=== PATIENT | female | born 1990 | race Caucasian/White ===

== ENCOUNTER 2022-07-07 17:10 | Inpatient (IN) | payer BC, OTHER ==
[2022-07-07 17:45] VITALS: BMI 31.8
[2022-07-07 18:39] LABS: BASO % 0.3 % (0-2.0); EOS % 0.3 % (0-4.5); HEMATOCRIT 36.6 % (32.4-45.2); HEMOGLOBIN 12.4 GM/dL (10.7-15.3); LYMPH % 15.6 % (8-40); MEAN CELL VOLUME 91.3 fl (80-96); MEAN PLT VOLUME 9.9 fl (7.5-11.1); MONO % 5.9 % (3.8-10.2); NEUT % 77.9 % (42.8-82.8); PLATELET COUNT 188 10^3/uL (134-434); RBC 4.01 M/mm3 (3.60-5.2); RDW 14.2 % (11.6-15.6); WHITE BLOOD COUNT 7.8 K/mm3 (4.0-10.0)
[2022-07-07 18:46] LABS: INR 0.96 (0.83-1.09)
[2022-07-07 18:48] LABS: ACTIVATED PTT 26.2 SECONDS (25.2-36.5)
[2022-07-07] MEDS ORDERED: DINOPROSTONE 10 MG VAGINAL SUPPOSITORY VG ONE (18:55)
[2022-07-07 19:01] LABS: BLOOD UREA NITROGEN 8.4 mg/dL (7-18); CALCIUM 9.1 mg/dL (8.5-10.1)
[2022-07-07 19:05] LABS: CREATININE 0.5 mg/dL (0.55-1.3)
[2022-07-07] MEDS: ELECTROLYTE-148 SOLN 1,000 ML IV SCH (20:00)
[2022-07-08] MEDS ORDERED: BUTORPHANOL TARTRATE 2 MG/ML VIAL ONE (00:58)
[2022-07-08] MEDS ORDERED: PROMETHAZINE HCL 25 MG/1 ML VIAL ONE (00:58)
[2022-07-08] MEDS ORDERED: PROMETHAZINE HCL 25 MG/1 ML VIAL IVPB ONE (01:10)
[2022-07-08] MEDS ORDERED: BUTORPHANOL TARTRATE 2 MG/ML VIAL IVPB ONE (01:10)
[2022-07-08] MEDS: ELECTROLYTE-148 SOLN 1,000 ML IV SCH ×3 (06:15→19:39)
[2022-07-08] MEDS ORDERED: OXYTOCIN 20 UNITS in 0.9% NS 40 UNIT/2,000 ML INFUS.BAG IV ONE (11:06)
[2022-07-08] MEDS ORDERED: PHENYLEPHRINE HCL 10 MG/1 ML SINGLE DOSE VIAL ONE (11:07)
[2022-07-08] MEDS ORDERED: ONDANSETRON 4 MG/2 ML VIAL ONE (11:07)
[2022-07-08] MEDS ORDERED: ceFAZolin SODIUM 1 GM VIAL ONE (11:07)
[2022-07-08] MEDS ORDERED: morphine SULFATE/PF 1 MG/2 ML (2cc Syringe - QUVA) ONE (11:07)
[2022-07-08] MEDS ORDERED: DEXAMETHASONE SOD PHOSPHATE 4 MG/1 ML VIAL ONE (11:07)
[2022-07-08] MEDS ORDERED: KETOROLAC TROMETHAMINE 30 MG/1 ML VIAL ONE (11:49)
[2022-07-08] MEDS ORDERED: ONDANSETRON 4 MG/2 ML VIAL IVPB PRN (12:14)
[2022-07-08] MEDS ORDERED: IBUPROFEN 800 MG/8 ML IJ IVPB PRN (12:14)
[2022-07-08] MEDS ORDERED: SENNOSIDES/DOCUSATE COMBO (SENNA PLUS) TABLET (UD) PO PRN (12:14)
[2022-07-08] MEDS: OXYTOCIN 20 UNITS in 0.9% NS 20 UNIT/1,000 ML INFUS.BAG IV SCH ×2 (12:30→21:28)
[2022-07-08] MEDS ORDERED: IBUPROFEN 800 MG/8 ML IJ IVPB ONE (12:31)
[2022-07-08] MEDS: ACETAMINOPHEN 1000 MG/100 ML BAG IVPB PRN ×2 (14:01→20:29)
[2022-07-08] MEDS ORDERED: CEFAZOLIN 2 GM in DEXTROSE 5%-WATER - 100 ML IVPB SCH (18:00)
[2022-07-08] MEDS: CEFAZOLIN 2 GM in DEXTROSE 5%-WATER 100 ML IVPB SCH (18:07)
[2022-07-09] MEDS: CEFAZOLIN 2 GM in DEXTROSE 5%-WATER 100 ML IVPB SCH (01:47)
[2022-07-09] MEDS: IBUPROFEN 600 MG TABLET (FP) PO PRN ×2 (01:47→19:49)
[2022-07-09] MEDS: SIMETHICONE 80 MG TAB.CHEW (FP) PO PRN ×4 (01:48→19:49)
[2022-07-09 03:34] VITALS: RESP 18
[2022-07-09] MEDS: ACETAMINOPHEN 1000 MG/100 ML BAG IVPB PRN (04:55)
[2022-07-09 09:13] LABS: BASO % 0.2 % (0-2.0); EOS % 0.5 % (0-4.5); HEMATOCRIT 31.4 % (32.4-45.2); HEMOGLOBIN 10.7 GM/dL (10.7-15.3); LYMPH % 18.3 % (8-40); MCH 31.6 pg (25.7-33.7); MCHC 34.2 g/dl (32.0-36.0); MEAN CELL VOLUME 92.3 fl (80-96); MEAN PLT VOLUME 9.7 fl (7.5-11.1); MONO % 6.4 % (3.8-10.2); NEUT % 74.6 % (42.8-82.8); PLATELET COUNT 148 10^3/uL (134-434); RDW 14.4 % (11.6-15.6); WHITE BLOOD COUNT 8.3 K/mm3 (4.0-10.0)
[2022-07-09] MEDS: oxyCODONE HCL 5 MG TABLET PO PRN (10:06)
[2022-07-09] MEDS ORDERED: BISACODYL 10 MG SUPP.RECT RC PRN (12:14)
[2022-07-09] MEDS: ACETAMINOPHEN 325 MG TABLET (FP) PO PRN (15:07)
[2022-07-09] MEDS: OXYTOCIN 20 UNITS in 0.9% NS 20 UNIT/1,000 ML INFUS.BAG IV SCH (19:44)
[2022-07-09] MEDS ORDERED: PHENAZOPYRIDINE HCL 100 MG TABLET (FP) PO ONE (22:45)
[2022-07-09] MEDS: NITROFURANTOIN MACROCRYSTAL 50 MG CAPSULE (FP) PO SCH (23:00)
[2022-07-10] MEDS: SIMETHICONE 80 MG TAB.CHEW (FP) PO PRN ×4 (03:42→19:18)
[2022-07-10] MEDS: ACETAMINOPHEN 325 MG TABLET (FP) PO PRN ×2 (03:42→15:22)
[2022-07-10] MEDS ORDERED: PHENAZOPYRIDINE HCL 100 MG TABLET (FP) PO ONE (06:00)
[2022-07-10] MEDS: NITROFURANTOIN MACROCRYSTAL 50 MG CAPSULE (FP) PO SCH ×3 (06:13→18:48)
[2022-07-10] MEDS: IBUPROFEN 600 MG TABLET (FP) PO PRN ×2 (08:58→19:18)
[2022-07-11] MEDS: NITROFURANTOIN MACROCRYSTAL 50 MG CAPSULE (FP) PO SCH ×3 (00:30→13:09)
[2022-07-11] MEDS: ACETAMINOPHEN 325 MG TABLET (FP) PO PRN ×2 (00:35→10:26)
[2022-07-11] MEDS: SIMETHICONE 80 MG TAB.CHEW (FP) PO PRN ×3 (00:35→10:27)
[2022-07-11] MEDS: oxyCODONE HCL 5 MG TABLET PO PRN (06:11)
[2022-07-11 09:38] VITALS: BP 129/74; PULSE 79; TEMP 98.8
== END 2022-07-11 14:00 | disposition home or self-care (01) | DRG 787 ==
LOC: JLDR 17:10 → J3W 07-08 13:35
PROVIDERS: ADMIT Specialist; ATTEND Specialist
PROC: 3E0P7VZ Introduction of Hormone into Female Reproductive, Via Natural or Artificial Opening (ICD-10-PCS; 2022-07-07)
PROC: 10D00Z1 Extraction of Products of Conception, Low, Open Approach (ICD-10-PCS; principal; 2022-07-08)
DX: O62.1 Secondary uterine inertia (principal); O41.03X0 Oligohydramnios, third trimester, not applicable or unspecified; O61.0 Failed medical induction of labor; Z3A.38 38 weeks gestation of pregnancy; Z37.0 Single live birth
CPT/HCPCS: 36415; 80048; 85025; 85610; 85730; 86780; 86850; 86900; 86901; 87086; 88307-TC; C9803-CS; U0003; U0005

== ENCOUNTER 2024-08-23 11:15 | Inpatient (IN) | payer BC, OTHER ==
[2024-08-23 12:39] LABS: BASO % 0.5 % (0-2.0); EOS % 0.5 % (0-4.5); HEMOGLOBIN 10.9 GM/dL (10.7-15.3); LYMPH % 20.7 % (8-40); MCHC 32.8 g/dl (32.0-36.0); MEAN CELL VOLUME 85.3 fl (80-96); MONO % 7.4 % (3.8-10.2); NEUT % 70.9 % (42.8-82.8); PLATELET COUNT 202 10^3/uL (134-434); RBC 3.87 M/mm3 (3.60-5.2); RDW 14.7 % (11.6-15.6); WHITE BLOOD COUNT 5.4 K/mm3 (4.0-10.0)
[2024-08-23 12:46] LABS: INR 0.92 (0.83-1.09); PROTHROMBIN TIME (PATIENT) 10.4 SEC (9.7-13.0)
[2024-08-23 12:48] LABS: ACTIVATED PTT 26.2 SECONDS (25.2-36.5)
[2024-08-23 13:11] LABS: CHLORIDE 108 mmol/L (98-107); POTASSIUM 4.1 mmol/L (3.5-5.1); SODIUM 141 mmol/L (136-145)
[2024-08-23 13:23] LABS: ANION GAP 12 mmol/L (4-13); BLOOD UREA NITROGEN 6.2 mg/dL (7-18); CALCIUM 8.4 mg/dL (8.5-10.1); CO2 21 mmol/L (21-32); GLUCOSE,RANDOM 78 mg/dL (74-106)
[2024-08-23 13:30] LABS: CREATININE 0.5 mg/dL (0.55-1.3)
[2024-08-23] MEDS: ELECTROLYTE-148 SOLN 1,000 ML IV SCH (14:00)
[2024-08-23 14:08] LABS: HIV INTERPRETATION NEGATIVE (NEGATIVE)
[2024-08-23 14:10] VITALS: BMI 30.1
[2024-08-23] MEDS ORDERED: SODIUM CHLORIDE 0.9% P/F 10 ML VIAL IJ ONE (15:57)
[2024-08-23] MEDS ORDERED: DEXAMETHASONE SOD PHOSPHATE 4 MG/1 ML VIAL ONE (15:57)
[2024-08-23] MEDS ORDERED: ONDANSETRON 4 MG/2 ML VIAL ONE (15:57)
[2024-08-23] MEDS ORDERED: ceFAZolin SODIUM 1 GM VIAL ONE ×2 (15:57)
[2024-08-23] MEDS ORDERED: KETOROLAC TROMETHAMINE 30 MG/1 ML VIAL ONE (16:05)
[2024-08-23] MEDS ORDERED: FENTANYL CITRATE/PF 50 MCG/ML VIAL ONE (17:33)
[2024-08-23] MEDS ORDERED: morphine SULFATE/PF 1 MG/2 ML (2cc Syringe - QUVA) ONE (17:33)
[2024-08-23] MEDS ORDERED: AZITHROMYCIN IVPB 500 MG/250 ML BAG IVPB ONE (17:38)
[2024-08-23] MEDS: CITRIC ACID/SODIUM CITRATE 30 ML UNIT-DOSE CUP PO ONE (18:00)
[2024-08-23] MEDS ORDERED: OXYTOCIN 10 UNITS/ML VIAL ONE (18:36)
[2024-08-23] MEDS ORDERED: MIDAZOLAM HCL 2 MG/2 ML SINGLE DOSE VIAL ONE (18:39)
[2024-08-23 19:13] LABS: CORD BASE EXCESS -4.9 mmol/L (0-2); CORD HCO3 19.9 mmHg (20-29); CORD PCO2 36.5 mmHg (30-78); CORD pH 7.354 (7.14-7.44)
[2024-08-23] MEDS ORDERED: METHYLERGONOVINE MALEATE 0.2 MG/1 ML AMP IM PRN (19:19)
[2024-08-23] MEDS ORDERED: OXYTOCIN 20 UNITS in 0.9% NS 20 UNIT/1,000 ML INFUS.BAG IV ONE (19:39)
[2024-08-23] MEDS: OXYTOCIN 20 UNITS in 0.9% NS 20 UNIT/1,000 ML INFUS.BAG IV SCH (19:40)
[2024-08-23] MEDS ORDERED: IBUPROFEN 800 MG/8 ML IJ IVPB ONE (20:49)
[2024-08-23] MEDS: IBUPROFEN 800 MG/8 ML IJ IVPB PRN (21:04)
[2024-08-23] MEDS: FERROUS SO4 325 MG TABLET (FP) PO SCH (23:26)
[2024-08-24] MEDS: ACETAMINOPHEN 1000 MG/100 ML BAG IVPB PRN (01:48)
[2024-08-24] MEDS: OXYTOCIN 20 UNITS in 0.9% NS 20 UNIT/1,000 ML INFUS.BAG IV SCH (06:05)
[2024-08-24] MEDS ORDERED: oxyCODONE HCL 5 MG TABLET PO PRN ×2 (07:19)
[2024-08-24 07:52] LABS: BASO % 0.1 % (0-2.0); HEMATOCRIT 28.2 % (32.4-45.2); HEMOGLOBIN 9.3 GM/dL (10.7-15.3); LYMPH % 10.5 % (8-40); MCH 28.2 pg (25.7-33.7); MCHC 32.9 g/dl (32.0-36.0); MEAN CELL VOLUME 85.8 fl (80-96); MEAN PLT VOLUME 9.8 fl (7.5-11.1); MONO % 5.4 % (3.8-10.2); PLATELET COUNT 187 10^3/uL (134-434); RBC 3.29 M/mm3 (3.60-5.2); RDW 14.7 % (11.6-15.6); WHITE BLOOD COUNT 10.7 K/mm3 (4.0-10.0)
[2024-08-24] MEDS: PRENATAL VITAMINS W/ FOLIC ACID TABLET (FP) PO SCH (10:00)
[2024-08-24] MEDS: SIMETHICONE 80 MG TAB.CHEW (FP) PO PRN (10:22)
[2024-08-24] MEDS: ENOXAPARIN NA (PORCINE) 40 MG/0.4 ML DISP.SYRIN SQ SCH (10:23)
[2024-08-24] MEDS: IBUPROFEN 600 MG TABLET (FP) PO PRN (14:10)
[2024-08-24] MEDS: ACETAMINOPHEN 325 MG TABLET (FP) PO PRN (15:25)
[2024-08-24] MEDS ORDERED: BISACODYL 10 MG SUPP.RECT RC PRN (19:19)
[2024-08-25 00:08] VITALS: RESP 18
[2024-08-25] MEDS: SENNOSIDES/DOCUSATE COMBO (SENNA PLUS) TABLET (UD) PO PRN (05:28)
[2024-08-26 08:00] LABS: BASO % 0.4 % (0-2.0); EOS % 1.4 % (0-4.5); HEMATOCRIT 28.5 % (32.4-45.2); HEMOGLOBIN 9.3 GM/dL (10.7-15.3); LYMPH % 22.5 % (8-40); MCH 28.1 pg (25.7-33.7); MCHC 32.8 g/dl (32.0-36.0); MEAN CELL VOLUME 85.7 fl (80-96); MEAN PLT VOLUME 9.3 fl (7.5-11.1); MONO % 5.6 % (3.8-10.2); NEUT % 70.1 % (42.8-82.8); PLATELET COUNT 220 10^3/uL (134-434); RBC 3.32 M/mm3 (3.60-5.2); RDW 15.2 % (11.6-15.6); WHITE BLOOD COUNT 6.9 K/mm3 (4.0-10.0)
[2024-08-26 10:45] VITALS: BP 113/71; PULSE 99; TEMP 97.9
== END 2024-08-26 13:20 | disposition home or self-care (01) | DRG 788 ==
LOC: JLDR 11:15 → J3W 22:00
PROVIDERS: ADMIT Specialist; ATTEND Specialist
PROC: 10D00Z1 Extraction of Products of Conception, Low, Open Approach (ICD-10-PCS; principal; 2024-08-23)
DX: O41.03X0 Oligohydramnios, third trimester, not applicable or unspecified (principal); Z3A.38 38 weeks gestation of pregnancy; Z37.0 Single live birth
CPT/HCPCS: 36415; 36600; 59409; 80048; 82803; 85025; 85610; 85730; 86780; 86850; 86900; 86901; 87389; 88307-TC; 94010; J0131